=== PATIENT | female | born 1970 | race Caucasian/White ===

== ENCOUNTER → 2018-05-18 | Outpatient (REF) | LOC: M SMT 13:02 | DX: M51.36 Other intervertebral disc degeneration, lumbar region (principal) ==

== ENCOUNTER → 2021-02-06 | Outpatient (CLI) | payer OTHER | LOC: M PLARAD 13:07 | PROVIDERS: ATTEND Physician Assistant | DX: M47.817 Spondylosis without myelopathy or radiculopathy, lumbosacral region (principal); M41.24 Other idiopathic scoliosis, thoracic region ==

== ENCOUNTER → 2021-04-03 | Outpatient (CLI) | payer OTHER ==
[~2021-04-03] MED LIST: ARNU1INH INH; ATOR1TAB19 PO; CALC1TAB42 PO; ESSE250T PO; FERR325T3 PO; FLAX10008 PO; GABA-282 PO; HYDR50TA70 PO; KP F1200 PO; MELO15TA28 PO; METO25TA4 PO; NESI25TA PO; OMEP40CA97 PO; RA T500C2 PO; RISP3TAB20 PO; TIZA4CAP PO; TRAM50TA2 PO; TRAZ-257 PO; VENL150C43 PO; VENTAER INH; VITATAB47 PO
== END ==
LOC: M LABSMTC 09:30
PROVIDERS: ATTEND Anesthesiology
DX: Z11.52 Encounter for screening for COVID-19 (principal)

== ENCOUNTER 2021-04-08 07:22 | Outpatient (CLI) | payer OTHER ==
[2021-04-08] MEDS ORDERED: fentaNYL 100 MCG/2 ML INJECTION (J3010) As Ordered ONE (09:19)
--- NOTE | 2021-04-08 10:31 | REPVR ---
PROCEDURE INFORMATION: Exam: MR Lumbar Spine Without Contrast Exam date and time: 04/08/2021 9:53 AM Age: 51 years old Clinical indication: Condition or disease; Disc degeneration; Thoracolumbar region; Additional info: Disc degeneration with sedation TECHNIQUE: Imaging protocol: Multiplanar magnetic resonance images of the lumbar spine without intravenous contrast. COMPARISON: SPINE LUMBOSACRAL PARTIAL 05/18/2018 1:19 PM FINDINGS: Vertebrae: The lumbar vertebral bodies are normal in height,signal intensity and alignment.No acute fracture or dislocation is seen. Spinal epidural space: There is no evidence of epidural masses or hemorrhage. Spinal cord: The conus medullaris is normal. The cauda equina nerve roots demonstrate no crowding or displacement. L1-L2: There is no significant degenerative disc herniation.The spinal canal and neural foramina are patent and without significant stenosis. L2-L3: There is no significant degenerative disc herniation.The spinal canal and neural foramina are patent and without significant stenosis. L3-L4: There is no significant degenerative disc herniation.The spinal canal and neural foramina are patent and without significant stenosis. L4-L5: Mildly reduced in height and T2 signal indicating degeneration.There is a mild diffuse posterior bulge causing mild effacement of the thecal sac.The facet joints demonstrate moderate degenerative narrowing and sclerosis. There is thickening of the ligamentum flavum.There is no evidence of spinal canal narrowing. There is mild bilateral foraminal stenosis. L5-S1: Mildly reduced in height and T2 signal indicating degeneration. Moderate adjacent degenerative endplate changes. Moderate posterior and left foraminal herniation.There is mild spinal canal narrowing, with an AP canal dimension of 10 mm. Severe left lateral recess narrowing with compression and posterior displacement of the left S1 nerve root. Moderate left foraminal stenosis, abutting the left S1 nerve root. Soft tissues: The prevertebral soft tissues appear normal. IMPRESSION: MRI of the lumbar spine reveals multilevel degenerative spondylitic changes and degenerative disc disease , most significant at L5-S1 level as described above. Electronically signed by: Marlo Green On 04/08/2021 10:31:19 AM
--- NOTE | 2021-04-08 10:34 | REPVR ---
PROCEDURE INFORMATION: Exam: MR Thoracic Spine Without Contrast Exam date and time: 04/08/2021 9:41 AM Age: 51 years old Clinical indication: Condition or disease; Disc degneration; Thoracic and thoracolumbar; Without myelopathy or radiculopathy; Patient HX: PT states back pain and spasms; Additional info: Disc degeneration with sedation TECHNIQUE: Imaging protocol: Multiplanar magnetic resonance images of the thoracic spine without contrast. COMPARISON: No relevant prior studies available. FINDINGS: Vertebrae: The study is limited due to motion artifact. The thoracic vertebral bodies are normal height and alignment.No acute fracture or dislocation is seen. Epidural space: There is no evidence of epidural masses or hemorrhage. Spinal cord: The thoracic spinal cord is normal in thickness and signal intensity.There is no cord compression or intramedullary signal abnormality. Discs/Spinal canal/Neural foramina: There is no significant degenerative disc herniation or spondylosis. The spinal canal and neural foramina are patent.. Soft tissues: The prevertebral soft tissues appear normal. Bone marrow: There is a normal proportion of hematopoietic bone marrow and fat for this patient's age.There is no evidence of abnormal bone marrow signal intensity to suggest contusion or infection. IMPRESSION: Unremarkable MRI of the thoracic spine.There is no significant degenerative disc herniation or spondylosis. The spinal canal and neural foramina are patent.There is no cord compression or intramedullary signal abnormality. Electronically signed by: Marlo Green On 04/08/2021 10:34:11 AM
[2021-04-08 10:35] VITALS: BP 129/65
== END 2021-04-08 10:35 | disposition home or self-care (01) ==
LOC: M RAD 07:22
PROVIDERS: ATTEND Physician Assistant
DX: M51.37 Other intervertebral disc degeneration, lumbosacral region (principal)

== ENCOUNTER → 2021-04-24 | Outpatient (CLI) | payer OTHER ==
[~2021-04-24] MED LIST changes: +OMEP40CA4 PO; -OMEP40CA97 PO
--- NOTE | 2021-04-29 01:02 | ECWPNPC ---
PATIENT NAME: CARLITOS BROWN : 1970 GENDER: FEMALE VISIT DATE: 04/24/2021 DISCHARGE DATE: 04/24/21 1350 VISIT LOCKED DATE TIME: PHYSICIAN: MARSHALL MORALES RESOURCE: MARSHALL MORALES REASON FOR APPOINTMENT 1. CHRONIC BACK/HIP HISTORY OF PRESENT ILLNESS DEPRESSION SCREENING: PHQ-2 (2015 EDITION) LITTLE INTEREST OR PLEASURE IN DOING THINGS?NOT AT ALL FEELING DOWN, DEPRESSED, OR HOPELESS?NOT AT ALL TOTAL SCORE0 FALL RISK SCREENING: SCREENING ONE FALL THIS YEAR NO MAJOR INJURIES. PAIN SCREENING: PATIENT HAS A COMPLAINT OF ACUTE OR CHRONIC PAIN :YES LOCATION OF PAIN:LOW BACK, LEFT HIP, RIGHT HIP INTENSITY OF PAIN (SCALE OF 1 TO 10):7 WHAT DOES YOUR PAIN FEEL LIKE:ACHING, SHARP, STABBING, SHOOTING DURATION:CONTINOUS, CONSTANT, ALL DAY, MAINLY DURING THE DAY, AWAKENS FROM SLEEP PAIN IS INCREASED BY:ACTIVITIES, PROLONGED STANDING PAIN IS DECREASED BY:USE OF PAIN MEDICATIONS, OTHERS HEAT AND ICE, HYDROCODONE NURSING NOTE: - - -. PAIN CENTER INTAKE QUESTIONS: DO YOU HAVE A HISTORY OF MRSA? :NO DO YOU TAKE A BLOOD THINNERS? :NO DO YOU HAVE ANY BLEEDING DISORDERS? :NO ANY NEW NUMBNESS OR WEAKNESS IN YOUR LEGS OR ARMS? :YES PAIN IN THE BOTH LEG BUT MOSTLY ON THE LEFT LEG. IN THE BACK OF LEG ANY PACEMAKER,DEFIBRILLATOR, OR DORSAL COLUMN STIMULATOR? :NO DO YOU HAVE ANY RASHES OR OPEN SORES? :NO ARE YOU ALLERGIC TO IV DYE? :NO ARE YOU DIABETIC? :YES TYPE 2 ANY NEW PROBLEMS WITH YOUR MEDICATIONS? :NO HAVE YOU RECEIVED A VACCINE IN THE PAST 30 DAYS? :NO DO YOU PLAN TO RECEIVE A VACCINE IN THE NEXT 21 DAYS? :NO DO YOU NEED ANY PRESCRIPTION? :NO DO YOU TAKE ANY IMMUNOSUPPRESSIVE MEDICATIONS? :NO IS THERE A CHANCE YOU COULD BE ? :NO ARE YOU BREAST FEEDING? :NO GENERAL: 51-YEAR-OLD FEMALE BEING REFERRED BY [facility] FOR EVALUATION OF CHRONIC LOW BACK PAIN. PATIENT STATES SHE HAS HAD LOW BACK PAIN FOR YEARS. DENIES PRECIPITATING EVENT. PAIN IS ACROSS THE LOWER BACK WITH INTERMITTENT LEFT LEG PAIN. DID PHYSICAL THERAPY ABOUT A YEAR AGO PER [facility] WITHOUT IMPROVEMENT. STATES SHE WAS ON GABAPENTIN 3 TIMES A DAY FOR 4 MONTHS THAT DID NOT HELP. CURRENTLY USING TRAMADOL 50 MG 4 TIMES A DAY AND HAS BEEN USING THIS FOR QUITE SOME TIME. SHE FINDS IT INEFFECTIVE. ADMITS TO TAKING HYDROCODONE OFF THE STREET WHICH IS HELPFUL. REVIEWED RECENT MRI OF LS SPINE DONE THIS MONTH. SHOWING SIGNIFICANT DEGENERATIVE CHANGES CAUSING LEFT L4-5 NERVE IMPINGEMENT/NEUROFORAMINAL NARROWING. DISCUSSED INTERVENTIONAL TREATMENT OPTIONS TO INCLUDE EPIDURAL STEROID INJECTION THAT COULD BE VERY HELPFUL FOR THIS CONDITION ESPECIALLY LEFT LEG RADICULOPATHY. PATIENT IS NOT INTERESTED IN INJECTION THERAPY. ALSO DISCUSSED THE FACT THAT SHE COULD TALK TO A ORTHOPEDIC SURGEON TO GET THEIR INPUT. DENIES BOWEL OR BLADDER INCONTINENCE. DENIES SADDLE PARESTHESIAS. DENIES RECENT ILLNESS OR SUDDEN WEIGHT LOSS. CURRENT MEDICATIONS TAKING VITAMIN B COMPLEX - TABLET DIRECTED ORALLY TAKING CALCIUM + D3 600-800 MG-UNIT TABLET 1 TABLET WITH A MEAL ORALLY ONCE A DAY TAKING VENLAFAXINE HCL ER 150 MG CAPSULE EXTENDED RELEASE 24 HOUR 1 CAPSULE WITH FOOD ORALLY ONCE A DAY TAKING RISPERIDONE 3 MG TABLET 1 TABLET ORALLY ONCE A DAY TAKING HYDROXYZINE HCL 25 MG/ML SOLUTION 2 ML NEEDED ORALLY 4 TIMES A DAY TAKING TIZANIDINE HCL 4 MG TABLET 1 TABLET NEEDED ORALLY THREE TIMES A DAY TAKING FERROUS SULFATE 325 (65 FE) MG TABLET 1 TABLET ORALLY ONCE A DAY TAKING METOPROLOL TARTRATE 25 MG TABLET 1 TABLET WITH FOOD ORALLY ONCE A DAY TAKING MELOXICAM 7.5 MG TABLET 1 TABLET ORALLY TWICE A DAY TAKING ARNUITY ELLIPTA 100 MCG/ACT AEROSOL POWDER BREATH ACTIVATED 1 PUFF INHALATION ONCE A DAY TAKING LIPITOR 10 MG TABLET 1 TABLET ORALLY ONCE A DAY TAKING ALOGLIPTIN BENZOATE 25 MG TABLET 1 TABLET ORALLY ONCE A DAY TAKING TRAMADOL HCL 50 MG TABLET 1 TABLET NEEDED ORALLY ONCE A DAY TAKING SEROQUEL 100 MG TABLET 1 TABLET AT BEDTIME ORALLY ONCE A DAY TAKING OMEPRAZOLE 20MG 20MG TABLET 2 TAB(S) ORAL ONCE A DAY TAKING VENTOLIN HFA 108 (90 BASE) MCG/ACT AEROSOL SOLUTION 2 PUFFS INHALATION NEEDED NOT-TAKING ACTOS 45 MG TABLET 1 TAB(S) ORALLY ONCE A DAY NOT-TAKING JANUVIA 100 MG TABLET 1 TABLET ORALLY ONCE A DAY NOT-TAKING GLIPIZIDE XL 5 MG TABLET EXTENDED RELEASE 24 HOUR 1 TABLET ORALLY ONCE A DAY NOT-TAKING CALCIUM 600 + D 600-400 MG-UNIT TABLET 1 TABLET ORALLY TWICE A DAY NOT-TAKING KLOR-CON 10 10 MEQ TABLET EXTENDED RELEASE 1 TABLET ORALLY ONCE A DAY NOT-TAKING ASPIRIN 81 MG TABLET 1 TAB(S) ORALLY ONCE A DAY NOT-TAKING TRILIPIX 135 MG CAPSULE DELAYED RELEASE 1 CAPSULE ORALLY ONCE A DAY NOT-TAKING LOSARTAN POTASSIUM 25 MG TABLET 1 TABLET ORALLY ONCE A DAY NOT-TAKING FUROSEMIDE 40 MG TABLET 1 TABLET ORALLY ONCE A DAY NOT-TAKING ADVAIR DISKUS 250-50 MCG/DOSE MISCELLANEOUS 1 INHALATION EVERY 12 HRS NOT-TAKING AMBIEN CR 12.5 MG TABLET EXTENDED RELEASE 1 TABLET AT BEDTIME NEEDED ORALLY ONCE A DAY NOT-TAKING VENLAFAXINE HCL 75 MG CAPSULE EXTENDED RELEASE 24 HOUR 3 CAPS ORALLY ONCE A DAY NOT-TAKING DRISDOL 50,000 UNITS CAPSULE 1 CAP(S) ORAL ONCE A MONTH NOT-TAKING SOHAIL-BE 0.35 MG TABLET 1 TABLET ORALLY ONCE A DAY NOT-TAKING TRULICITY 0.75 MG/0.5ML SOLUTION PEN-INJECTOR DIRECTED SUBCUTANEOUS MEDICATION LIST REVIEWED AND RECONCILED WITH THE PATIENT PAST MEDICAL HISTORY TYPE II DIABETES GERD DEPRESSION OBESITY MIGRAINE H/A VITAMIN D DEFICIENCY BIPOLAR 2 DISORDER OSTEOARTHRITIS LYMPHOCYTOSIS SLEEP DISTURBANCE HYPOTHYROIDISM SMOKING ADDICTION ASTHMA PNEUMONIA RAPID IRREGULAR HEART BEAT PEDAL EDEMA RIGHT LEG SWELLING ABDOMINAL PAIN PRESBYOPIA HYPERTRIGLYCERIDEMIA BACK PAIN/ BILATERAL HIP PAIN ONE FALL THIS YEAR NO MAJOR INJURIES ALLERGIES LISINOPRIL: COUGHING - ALLERGY SURGICAL HISTORY UMBILICAL HERNIA REPAIR X 5 C SECTION X 2 TONSILLECTOMY 1986 CHOLECYSTECTOMY ACHILLES TENDON REPAIR-RIGHT FAMILY HISTORY FATHER: ALIVE 63 YRS, UT, HYPERTENSION, DEPRESSION,HEART DISEASE MOTHER: ALIVE 60 YRS, GERD, HYPERLIPIDEMIA, BONE CANCER,DEPRESSION SIBLINGS: ALIVE, OBESITY, KIDNEY PROBLEMS SON(S): ALIVE DAUGHTER(S): ALIVE PATERNAL GRAND FATHER: COLON CANCER, PROSTATE CANCER PATERNAL GRAND MOTHER: DIABETES MATERNAL GRAND MOTHER: CVA, DIABETES MATERNAL AUNT: 2 MATERNAL AUNTS WITH HX BREAST CANCER PREMENOPAUSALLY 1 BROTHER(S) , 1 SISTER(S) - HEALTHY. 1 SON(S) , 1 DAUGHTER(S) - HEALTHY. HALF SISTER WITH CROHNS. SOCIAL HISTORY GENERAL: TOBACCO USE ARE YOU A:CURRENT SMOKER ARE YOU INTERESTED IN QUITTING?READY TO QUIT COUNSELED THE PATIENT ON TOBACCO USE, CESSATION [id number]/24/2021 HOW MANY CIGARETTES A DAY DO YOU SMOKE?31 OR MORE 3 PACKS HOW SOON AFTER YOU WAKE UP DO YOU SMOKE YOUR FIRST CIGARETTE?6-30 MIN HOW OFTEN DO YOU SMOKE CIGARETTES?EVERY DAY PATIENT COUNSELED ON THE DANGERS OF TOBACCO USE AND URGED TO QUIT:04/24/2021 LATEX QUESTIONNAIRE LATEX ALLERGY : HAVE YOU EVER DEVELOPED ANY TYPE OF REACTION AFTER HANDLING LATEX PRODUCTS SUCH RUBBER GLOVES, CONDOMS, DIAPHRAGMS, BALLOONS, SOCKS, OR UNDERWEAR?NO LATEX ALLERGY : HAVE YOU EVER DEVELOPED ANY TYPE OF REACTION DURING OR AFTER DENTAL APPOINTMENT, VAGINAL/RECTAL EXAMINATION, SURGICAL PROCEDURE, OR ANY OTHER EXPOSURE?NO LATEX RISK : HAVE YOU EVER HAD ANY DIFFICULTY BREATHING OR HIVES AFTER EATING OR HANDLING ANY FRUITS, OR VEGETABLES; SUCH KIWI, BANANAS, STONE FRUITS, OR CHESTNUTSNO LATEX RISK : DO YOU HAVE A PREVIOUS PERSONAL HISTORY OF MORE THAN NINE SURGERIES, SPINA BIFIDA, OR REPEATED CATHERIZATIONS? NO LATEX RISK : ARE YOU FREQUENTLY EXPOSED TO LATEX PRODUCTS IN YOUR OCCUPATION?NO DATE ASKED : 04/24/2021 ALCOHOL USE: NO. RECREATIONAL DRUG USE DENIES. CAFFEINE 3-4 DIET SODAS DAILY.. LANGUAGE LANGUAGES SPOKEN:[place] LEARNING BARRIERS / SPECIAL NEEDS CHANGE FROM LAST VISIT?NO BARRIERS TO LEARNING?NO HEARING IMPAIRED?NO VISION IMPAIRED?YES : DRIVING COGNITIVELY IMPAIRED?NO READINESS TO LEARN?YES LEARNING PREFERENCES?YES :DEMONSTRATION/VERBAL INSTRUCTION LEARNING CAPABILITIES PRESENT?YES EMOTIONAL BARRIERS?NO SPECIAL DEVICES?NO MEDICAL INFORMATION OFFICER NEEDED?NO DOMESTIC VIOLENCE DENIES. OCCUPATION: HOMEMAKER. DIET: NO RESTRICTION. PLANS BARIATRIC SURGERY (AC). EXERCISE: NONE, ACHILLES TENDON SURGERY SUMMER 2009. LIMITED IN WHAT SHE CAN DO.. OTHERS AT HOME: SON (18), DAUGHTER (12). HOSPITALIZATION/MAJOR DIAGNOSTIC PROCEDURE CHILDBIRTH [facility] 2012 REVIEW OF SYSTEMS CONSTITUTIONAL: ANY RECENT FEVER NO . CHILLS NO . WEIGHT CHANGE OF UNKNOWN REASONS NO . GASTROENTEROLOGY: NEW UNEXPLAINABLE CHANGES IN BOWEL CONTROL NO . CONSTIPATION NO . GENITOURINARY: ANY NEW CHANGE IN BLADDER CONTROL? NO . NEUROLOGY: NEW ONSET DIZZINESS OR NEUROLOGICAL CHANGES NOT MENTIONED NO . NEW NUMBNESS OR PAIN PATTERNS NOT MENTIONED AND PERTINENT TO TODAY'S VISIT NO . CARDIOLOGY: NEW CHEST PRESSURE NO . PATIENT DENIES NO . RESPIRATORY: UNEXPLAINABLE COUGH NO . NEW SHORTNESS OF BREATH NO . VITAL SIGNS WT 280.6 LBS, HT 65 IN, BMI 46.69 INDEX, BP 130/89 MM HG, HR 93 /MIN, RR 18 /MIN, TEMP 97.5 F, OXYGEN SAT % 92, SAFE IN ENV? (Y/N) YES, NA INITIALS AK 12:57T.MARCUS SILVA. EXAMINATION GENERAL EXAMINATION: GENERALNO ACUTE DISTRESS, MORBID OBESITY. PSYCHAPPROPRIATE MOOD AND AFFECT . NECK:NO LYMPHADENOPATHY, SUPPLE. LUNGS:CLEAR TO AUSCULTATION BILATERALLY, NO WHEEZES, RHONCHI, RALES. HEART:NO MURMURS, REGULAR RATE AND RHYTHM. MUSCULOSKELETAL:NORMAL RANGE OF MOTION. MUSCLE STRENGTH TESTING 5/5 BILATERAL LOWER EXTREMITIES. LUMBAR:NONTENDER WITH PALPATION OVER LS SPINE AND LUMBAR PARASPINALS.. NEUROLOGIC EXAM:NORMAL SENSATION TO LIGHT TOUCH LOWER EXTREMITIES.. DIAGNOSTIC TESTS REVIEWEDMRI LS SPINE 04/08/2021 MRI THORACIC SPINE 04/08/2021. ASSESSMENTS OTHER INTERVERTEBRAL DISC DISPLACEMENT, LUMBAR REGION - M51.26 (PRIMARY) TREATMENT OTHER INTERVERTEBRAL DISC DISPLACEMENT, LUMBAR REGION NOTES: ADVISED TO CONTINUE WITH FOLLOWING [facility]. [facility] MAY CONSIDER TRIAL OF HYDROCODONE 5/325 EVERY 6 HOURS IF NEEDED FOR SEVERE PAIN EPISODES BUT NOT GIVING HER ENOUGH FOR 4 TABLETS DAILY FOR A 30-DAY SUPPLY TO AVOID ISSUES OF TOLERANCE. SHE CURRENTLY IS NOT INTERESTED IN INTERVENTIONAL TREATMENT FOR HER PAIN. SHE MAY BE OPEN TO HAVING A SURGICAL OPINION. SHE IS AWARE THAT SHE CAN RETURN TO OUR CLINIC FOR FOLLOW-UP IF SHE WOULD LIKE TO CONSIDER INTERVENTIONAL THERAPY OPTIONS. PROCEDURE CODES FA211 ESTABILISHED PATIENT [facility] F[facility] CHARGE DISPOSITION & COMMUNICATION FOLLOW UP NO FOLLOW-UP NECESSARY (REASON: LOW BACK PAIN WITH LEFT LEG RADICULAR SYMPTOMS/NOT INTERESTED IN INTERVENTIONAL TREATMENT) ELECTRONICALLY SIGNED BY AILYN GREY ON 04/28/2021 AT 08:37 AM EDT DISCLAIMER : THIS IS A VISIT SUMMARY EXTRACTED FROM THE [email or web address] CHART. IT IS NOT A COPY OF THE [email or web address] PROGRESS NOTE. [employer]
== END ==
LOC: M PAIN 13:00
PROVIDERS: ATTEND Nurse Practitioner Family
DX: M51.26 Other intervertebral disc displacement, lumbar region (principal); E11.9 Type 2 diabetes mellitus without complications; K21.9 Gastro-esophageal reflux disease without esophagitis; E66.9 Obesity, unspecified; E55.9 Vitamin D deficiency, unspecified; G43.909 Migraine, unspecified, not intractable, without status migrainosus; F31.81 Bipolar II disorder; M19.90 Unspecified osteoarthritis, unspecified site; E03.9 Hypothyroidism, unspecified; F17.210 Nicotine dependence, cigarettes, uncomplicated; Z68.42 Body mass index [BMI] 45.0-49.9, adult; Z88.8 Allergy status to other drugs, medicaments and biological substances; Z79.891 Long term (current) use of opiate analgesic; Z79.899 Other long term (current) drug therapy; Z79.84 Long term (current) use of oral hypoglycemic drugs

== ENCOUNTER → 2022-12-28 | Outpatient (REF) | payer OTHER | LOC: M LAB REF 13:34 | PROVIDERS: ATTEND Ophthalmology | DX: H02.824 Cysts of left upper eyelid (principal) ==